=== PATIENT | female | born 1990 | race Hispanic/Latino ===

== ENCOUNTER 2023-07-01 02:58 | Emergency (ER) | payer MEDICAID, OTHER ==
[~2023-07-01] VITALS: Ht 165.1 cm; Wt 112.5 kg
[~2023-07-01 02:58] MED LIST: ACET-2079 PO; PENI500T2 PO
[2023-07-01] MEDS ORDERED: CEPH500B PO (04:28)
[2023-07-01] MEDS ORDERED: IBUP-1493 PO (04:28)
[2023-07-01 05:14] LABS: BASOPHILS # (AUTO) 0.03 K/uL (0.00-0.20); BASOPHILS % (AUTO) 0.3 % (0.0-5.0); EOSINOPHILS # (AUTO) 0.04 K/uL (0.00-0.70); EOSINOPHILS % (AUTO) 0.4 % (0.0-8.0); HEMATOCRIT 38.6 % (36-48); IMMATURE GRANULOCYTE ABSOLUTE 0.06 K/uL (0-1); LYMPHOCYTES # (AUTO) 2.3 K/uL (1.0-4.8); LYMPHOCYTES % (AUTO) 25.6 % (21.0-51.0); MEAN CORPUSCULAR HEMOGLOBIN 25.1 pg (27.0-33.0); MEAN CORPUSCULAR HGB CONC 32.1 g/dL (32.0-36.0); MEAN CORPUSCULAR VOLUME 78.1 fL (79-99); MONOCYTES # (AUTO) 0.4 K/uL (0.1-1.0); MONOCYTES % (AUTO) 4.3 % (3.0-13.0); NEUTROPHILS # (AUTO) 6.2 K/uL (1.8-7.7); NEUTROPHILS % (AUTO) 68.7 % (40.0-77.0); PLATELET COUNT (AUTO) 268 K/uL (130-400); RED BLOOD CELL COUNT(AUTO) 4.94 MIL/uL (4.00-5.50); RED CELL DISTRIBUTION WIDTH 15.1 % (11.0-15.5); WHITE BLOOD COUNT (AUTO) 9.1 K/uL (4.8-10.8)
[2023-07-01 05:27] LABS: CREATININE 0.4 mg/dL (0.5-1.5); POTASSIUM 4.2 mmol/L (3.5-5.1)
[2023-07-01 05:32] LABS: ALBUMIN 3.2 g/dL (3.5-5.0); BILIRUBIN,TOTAL 0.3 mg/dL (0.2-1.0); TOTAL PROTEIN, SERUM 7.5 g/dL (6.0-8.3)
[2023-07-01 06:28] VITALS: BP 138/64; PULSE 78; RESP 18; O2SAT 96
== END 2023-07-01 06:29 | disposition home or self-care (01) ==
LOC: EDH 02:58
DX: L02.212 Cutaneous abscess of back [any part, except buttock and flank] (principal); Z79.899 Other long term (current) drug therapy; Z98.890 Other specified postprocedural states
CPT/HCPCS: 36415; 80053; 83036; 83605; 85025

== ENCOUNTER 2023-12-13 18:53 | Emergency (ER) | payer BC, OTHER ==
[~2023-12-13] VITALS: Ht 165.1 cm; Wt 113.4 kg
[~2023-12-13 18:53] MED LIST changes: +CEPH500B PO; +IBUP-1493 PO
[2023-12-13 20:55] VITALS: BP 138/76; PULSE 84; RESP 18; O2SAT 98
[2023-12-13] MEDS: HYDROCODONE/ACETAMINOPHEN 5/325 MG TAB PO ONE (22:59)
[2023-12-13] MEDS ORDERED: SULF1TAB42 PO (23:00)
[2023-12-13] MEDS: SULFAMETHOX-TMP DS 800/160 TAB PO SCH (23:00)
[2023-12-13] MEDS ORDERED: ACET-2079 PO (23:25)
== END 2023-12-13 23:24 | disposition home or self-care (01) ==
LOC: EDH 18:53
DX: L03.312 Cellulitis of back [any part except buttock and flank] (principal); Z79.1 Long term (current) use of non-steroidal anti-inflammatories (NSAID)

== ENCOUNTER 2025-04-01 20:20 | Emergency (ER) | payer OTHER, BC ==
[~2025-04-01] VITALS: Ht 165.1 cm; Wt 107.0 kg
[~2025-04-01 20:20] MED LIST changes: +SULF1TAB42 PO
--- NOTE | 2025-04-01 20:22 | NUR ---
UA CUP PROVIDED
--- NOTE | 2025-04-01 20:30 | NUR ---
UA COLLECTED AND SENT
--- NOTE | 2025-04-01 20:49 | EKG ---
[facility] Test Date: 2025-04-01 Test Time: 20:23:03 Pat Name: MANNY ARAIZA Department: ED Room: Gender: F Channel Opener: [id number] : 1990 Requested By: KAJAL LUIS Order Number: [id number] Reading MD: Ctaarino Rivera Measurements Intervals [place] Rate: 86 P: 16 TX: 174 QRS: -8 QRSD: 99 T: 51 QT: 363 QTc: 434 Interpretive Statements Sinus rhythm Consider anterior infarct No previous ECG available for comparison Electronically Signed On 04-05-2025 22:10:55 CDT by Catarino Rivera Please click the below link to view image of tracing.
[2025-04-01] MEDS: CYCLOBENZAPRINE HCL 10 MG TABLET PO ONE (21:27)
[2025-04-01] MEDS: ketOROlac 60 MG VIAL (30MG/ML) IM ONE (21:28)
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
[2025-04-01 22:41] LABS: APPEARANCE,URINE CLEAR (CLEAR); BILIRUBIN,URINE NEGATIVE (NEGATIVE); COLOR,URINE COLORLESS (YELLOW); GLUCOSE, URINE (UA) >=1000 mg/dL (NEGATIVE); KETONES,URINE 5 mg/dL (NEGATIVE); LEUKOCYTE ESTERASE ,URINE NEGATIVE Leu/uL (NEGATIVE); NITRATE,URINE NEGATIVE (NEGATIVE); OCCULT BLOOD,URINE NEGATIVE (NEGATIVE); PH,URINE 5.5 (5.0-8.0); PROTEIN,URINE NEGATIVE (NEGATIVE); UROBILINOGEN,URINE 0.2 mg/dL (0.2-1.0)
--- NOTE | 2025-04-01 22:43 | HMCIMG ---
LUMBAR SPINE 2-3VWS HISTORY: Pain COMPARISON: None FINDINGS: 2 images of the lumbar spine were obtained. Disc space narrowing is seen at the L5-S1 level. There is straightening of normal lordotic curvature which may be related to muscle spasm or positioning. No loss of vertebral height is seen. No fracture or dislocation is seen. Degenerative changes are seen. IMPRESSION: 1. No fracture is seen. DJD.
[2025-04-01 22:45] LABS: ADD UA MICROSCOPIC YES
--- NOTE | 2025-04-01 22:45 | HMCIMG ---
FEMUR 2 VW LEFT HISTORY: Chest COMPARISON: None TECHNIQUE: 4 images of the left femur were obtained. FINDINGS: There is no acute displaced fracture or dislocation. IMPRESSION: 1. Findings as described above.
[2025-04-01 22:46] LABS: MUCUS,URINE RARE LPF (None Seen); RBC,URINE 0-1 /HPF (0-1); SQUAMOUS EPITHELIAL CELL,UR FEW /HPF (0-2); WBC,URINE 0-1 /HPF (0-1)
--- NOTE | 2025-04-01 22:50 | HMCIMG ---
CHEST 1VW HISTORY: Chest pain COMPARISON: None FINDINGS: A frontal projection of the chest was obtained. No acute pulmonary infiltrates is seen. The heart is borderline enlarged. Degenerative changes are seen. Prominent interstitial markings are seen. No evidence of aortic calcification is seen. IMPRESSION: 1. No acute pulmonary infiltrate is seen.
--- NOTE | 2025-04-01 22:54 | NUR ---
RECEIVED REPORT FROM JEFFY HIGH, PENDING DISPOSITION
[2025-04-01] MEDS ORDERED: CYCL10TA16 PO (22:56)
[2025-04-01 23:07] VITALS: BP 134/79; PULSE 76; RESP 16; TEMP 98.1; O2SAT 100
== END 2025-04-01 23:07 | disposition home or self-care (01) ==
LOC: EDH 20:20
DX: S39.012A Strain of muscle, fascia and tendon of lower back, initial encounter (principal); Z79.1 Long term (current) use of non-steroidal anti-inflammatories (NSAID); V89.2XXA Person injured in unspecified motor-vehicle accident, traffic, initial encounter; Y93.89 Activity, other specified; Y92.89 Other specified places as the place of occurrence of the external cause; Y99.8 Other external cause status
CPT/HCPCS: 99285; 71045; 81001; 81025; 73552; 72100; 96372; 93005; J1885